=== PATIENT | female | born 1975 | race Caucasian/White ===

== ENCOUNTER 2021-03-23 08:27 | Outpatient (RCR) | payer OTHER, SELFPAY ==
[2021-03-23] MEDS: ACETAMINOPHEN 325 MG TABLET 650 MG PO (14:32)
[2021-03-23] MEDS: diphenhydrAMINE HCl CAP 25 MG CAPSULE PO (14:33)
[2021-03-23] MEDS: FAMOTIDINE 20 MG TABLET PO (14:33)
[2021-03-23 14:40] VITALS: BP 116/74; PULSE 99; RESP 20; TEMP 36.9; O2SAT 97
[2021-03-23 16:01] VITALS: BP 126/81
--- NOTE | 2021-03-24 11:06 | PC.NURSE ---
Called Ms Mcclurenadia and she is feeling the same as yesterday.Stated no new symptoms and has no questions at this time.
== END 2021-03-23 17:00 ==
LOC: AMCINF 08:27
PROVIDERS: PCP Internal Medicine; Visit Provider Internal Medicine Hematology & Oncology
DX: U07.1 COVID-19 (principal); I10 Essential (primary) hypertension; D84.9 Immunodeficiency, unspecified; E11.9 Type 2 diabetes mellitus without complications
CPT/HCPCS: A9270; M0245; Q0245